=== PATIENT | female | born 1985 | race American Indian/Alaskan Native ===

== ENCOUNTER 2017-03-06 01:38 | Emergency (ER) | payer MEDICAID ==
[2017-03-06 03:36] LABS: Hematocrit 35.3 % (30.3-42.9); Hemoglobin 11.7 gm/dl (10.1-14.3); Mean Corpuscular HGB Conc 33 % (30-34); Mean Corpuscular Hemoglobin 29 pg (28-32); Mean Corpuscular Volume 87 fl (79-97); Platelet Count 248 K/mm3 (140-440); Red Blood Count 4.07 M/mm3 (3.65-5.03); Red Cell Distribution Width 13.8 % (13.2-15.2); White Blood Count 6.7 K/mm3 (4.5-11.0)
[2017-03-06 03:40] LABS: Bilirubin,Urine NEG (Negative); Blood,Urine SM (Negative); Ketones,Urine NEG (Negative); Leukocyte Esterase,Urine NEG (Negative); Mucus,Urine FEW /HPF; Nitrite,Urine NEG (Negative); Protein,Urine <15 mg/dL mg/dL (Negative); Urobilinogen,Urine < 2.0 mg/dL (<2.0)
[2017-03-06 03:40] LABS: Anion Gap 19 mmol/L; BUN/Creatinine Ratio 18.57; Blood Urea Nitrogen 13 mg/dL (7-17); Calcium 9.5 mg/dL (8.4-10.2); Carbon Dioxide 26 mmol/L (22-30); Chloride 100.3 mmol/L (98-107); Glucose 94 mg/dL (65-100); Potassium 4.1 mmol/L (3.6-5.0); Sodium 141 mmol/L (137-145)
--- NOTE | 2017-03-06 08:59 | Ultrasound Report ---
ULTRASOUND OB LESS THAN 14 WEEKS - TRANSABDOMINAL AND TRANSVAGINAL INDICATION: , abdominal pain. Serum beta-hCG 39.05 units. History of ectopic in December on right side and tubes tied in 2009. COMPARISON: 12/14/2016 FINDINGS: Transabdominal and transvaginal pelvic sonography performed in this patient with LMP of 01/21/2017 and estimated menstrual age of 6 weeks and 2 days. A 9.8 x 5.4 x 5.7 cm uterus demonstrates no evidence of an intrauterine gestation at this time. Approximately 2.3 x 1.7 cm fibroid may be present as on endovaginal image 15. Endometrial thickness towards the fundus 1.4 cm, endovaginal image 8. No significant pelvic free fluid. Few small nabothian cysts. Normal imaged urinary bladder. Right ovary is 3 x 2.2 x 2.7 cm with few small physiologic follicles. Left ovary is 3.9 x 2.7 x 3 cm with an eccentric 2.2 cm complex cyst with intrinsic echoes, endovaginal image 27. CONCLUSION: 1. No sonographic evidence of an intrauterine gestation, as described. Small fibroid may be present. 2. Both ovaries visualized with a complex left ovarian cyst. Please also correlate clinically, with serial serum beta-hCG values and/or followup imaging, as warranted. Thank you for the opportunity to participate in this patient's care.
--- NOTE | 2017-03-06 10:38 | Emergency Department Report ---
ED Female HPI - General Chief complaint: Abdominal Pain Stated complaint: LEFT PELVIC PAIN/POSS ECTOPIC PREG Time Seen by Provider: 03/06/17 08:28 Source: patient, RN notes reviewed, old records reviewed Mode of arrival: Ambulatory Limitations: No Limitations - History of Present Illness Initial comments: This is a 31-year-old female. She is previously unknown to me. She is 5, para 3. Last menstrual period is January 21. Patient treated at this hospital December 2016 for right-sided ectopic , her postoperative diagnosis included pelvic adhesions, and she had a right sided salpingectomy, right paravertebral and left paratubal cystectomy, and lysis of pelvic adhesions. Patient was found to have an ectopic which was visible at the proximal portion of the right fallopian tube. The patient presents to the ER with left lower quadrant pain for one week and concern for recurrent ectopic . The pain is achy, and does not radiate anywhere. The pain increases with palpation and range of motion, and it decreases with rest. She is not having vaginal bleeding, she denies dizziness, lightheadedness, chest pain, shortness of breath, irritative or obstructive urinary symptoms. Her symptoms are not worsened today, she reports that she came in today "just to be sure." MD Complaint: pelvic pain -: Gradual Radiation: LLQ Severity: mild Quality: cramping Consistency: intermittent Are you Now?: Yes Associated Symptoms: abdominal pain. denies: vaginal discharge, vaginal bleeding, nausea/vomiting, fever/chills, headaches, loss of appetite, dysuria, hematuria, shortness of breath, syncope, weakness - Related Data Sexually active: Yes Home Medications Medication Instructions Recorded Confirmed Last Taken No Known Home Medications [No 03/06/17 03/06/17 Unknown Reported Home Medications] Allergies Allergy/AdvReac Type Severity Reaction Status Date / Time No Known Allergies Allergy Verified 12/14/16 08:05 ED Review of Systems ROS: Stated complaint: LEFT PELVIC PAIN/POSS ECTOPIC PREG Other details as noted in HPI ED Past Medical Hx - Past Medical History Previous Medical History?: Yes Hx Renal Disease: No Additional medical history: Ectopic December 14, 2016 - Surgical History Past Surgical History?: Yes Additional Surgical History: tubal ligation (2009) - Social History Smoking Status: Never Smoker - Medications Home Medications: Home Medications Medication Instructions Recorded Confirmed Last Taken Type No Known Home Medications [No 03/06/17 03/06/17 Unknown History Reported Home Medications] ED Physical Exam - General Limitations: No Limitations General appearance: alert, in no apparent distress - Head Head exam: Present: atraumatic, normocephalic - Eye Eye exam: Present: normal appearance, EOMI. Absent: nystagmus - ENT ENT exam: Present: normal exam, normal orophraynx, mucous membranes moist, normal external ear exam - Neck Neck exam: Present: normal inspection, full ROM. Absent: tenderness, meningismus - Respiratory Respiratory exam: Present: normal lung sounds bilaterally. Absent: respiratory distress, wheezes, rales, rhonchi, stridor, chest wall tenderness, accessory muscle use, decreased breath sounds, prolonged expiratory - Cardiovascular Cardiovascular Exam: Present: regular rate, normal rhythm, normal heart sounds. Absent: bradycardia, tachycardia, irregular rhythm, systolic murmur, diastolic murmur, rubs, gallop - GI/Abdominal GI/Abdominal exam: Present: soft, tenderness, normal bowel sounds, other (there is minimal left lower quadrant tenderness, there is no rebound, guarding or peritoneal signs.). Absent: distended, guarding, rebound, rigid, pulsatile mass - External exam: Present: other (gynecologic examination is deferred because of concern for a suspected early ectopic ) - Extremities Exam Extremities exam: Present: normal inspection, full ROM, normal capillary refill. Absent: calf tenderness - Back Exam Back exam: Present: normal inspection, full ROM. Absent: tenderness, CVA tenderness (R), CVA tenderness (L), muscle spasm, paraspinal tenderness, vertebral tenderness - Neurological Exam Neurological exam: Present: alert, oriented X3, normal gait, other (Extraocular movements intact. Tongue midline. No facial droop. Facial sensation intact to light touch in the V1, V2, V3 distribution bilaterally. 5 and 5 strength in 4 extremities.. Sensation is intact to light touch in 4 extremities.). Absent : motor sensory deficit - Psychiatric Psychiatric exam: Present: normal affect, normal mood - Skin Skin exam: Present: warm, dry, intact, normal color. Absent: rash ED Course Vital Signs 03/06/17 03/06/17 03/06/17 02:49 08:33 09:02 Temperature 99.0 F Pulse Rate 83 75 Respiratory 18 18 16 Rate Blood Pressure 130/81 Blood Pressure 109/65 [Right] O2 Sat by Pulse 100 100 Oximetry ED Medical Decision Making - Lab Data Result diagrams: 03/06/17 03:07 03/06/17 03:07 Vital Signs 03/06/17 03/06/17 03/06/17 02:49 08:33 09:02 Temperature 99.0 F Pulse Rate 83 75 Respiratory 18 18 16 Rate Blood Pressure 130/81 Blood Pressure 109/65 [Right] O2 Sat by Pulse 100 100 Oximetry Lab Results 03/06/17 03/06/17 03/06/17 Range/Units 03:07 03:07 03:07 WBC 6.7 (4.5-11.0) K/mm3 RBC 4.07 (3.65-5.03) M/mm3 Hgb 11.7 (10.1-14.3) gm/dl Hct 35.3 (30.3-42.9) % MCV 87 (79-97) fl MCH 29 (28-32) pg MCHC 33 (30-34) % RDW 13.8 (13.2-15.2) % Plt Count 248 (140-440) K/mm3 Sodium (137-145) mmol/L Potassium (3.6-5.0) mmol/L Chloride (98-107) mmol/L Carbon Dioxide (22-30) mmol/L Anion Gap mmol/L BUN (7-17) mg/dL Creatinine (0.7-1.2) mg/dL Estimated GFR ml/min BUN/Creatinine Ratio % Glucose (65-100) mg/dL Calcium (8.4-10.2) mg/dL HCG, Qual Positive (Negative) HCG, Quant 39.05 H (0-4) mIU/mL Urine Color (Yellow) Urine Turbidity (Clear) Urine pH (5.0-7.0) Ur Specific [place] (1.003-1.030) Urine Protein (Negative) mg/dL Urine Glucose (UA) (Negative) mg/dL Urine Ketones (Negative) mg/dL Urine Blood (Negative) Urine Nitrite (Negative) Urine Bilirubin (Negative) Urine Urobilinogen (<2.0) mg/dL Ur Leukocyte Esterase (Negative) Urine WBC (Auto) (0.0-6.0) /HPF Urine RBC (Auto) (0.0-6.0) /HPF U Epithel Cells (Auto) (0-13.0) /HPF Urine Mucus /HPF 03/06/17 03/06/17 Range/Units 03:07 03:17 WBC (4.5-11.0) K/mm3 RBC (3.65-5.03) M/mm3 Hgb (10.1-14.3) gm/dl Hct (30.3-42.9) % MCV (79-97) fl MCH (28-32) pg MCHC (30-34) % RDW (13.2-15.2) % Plt Count (140-440) K/mm3 Sodium 141 (137-145) mmol/L Potassium 4.1 (3.6-5.0) mmol/L Chloride 100.3 (98-107) mmol/L Carbon Dioxide 26 (22-30) mmol/L Anion Gap 19 mmol/L BUN 13 (7-17) mg/dL Creatinine 0.7 (0.7-1.2) mg/dL Estimated GFR > 60 ml/min BUN/Creatinine Ratio 18.57 % Glucose 94 (65-100) mg/dL Calcium 9.5 (8.4-10.2) mg/dL HCG, Qual (Negative) HCG, Quant (0-4) mIU/mL Urine Color Yellow (Yellow) Urine Turbidity Clear (Clear) Urine pH 5.0 (5.0-7.0) Ur Specific [place] 1.023 (1.003-1.030) Urine Protein <15 mg/dl (Negative) mg/dL Urine Glucose (UA) Neg (Negative) mg/dL Urine Ketones Neg (Negative) mg/dL Urine Blood Sm (Negative) Urine Nitrite Neg (Negative) Urine Bilirubin Neg (Negative) Urine Urobilinogen < 2.0 (<2.0) mg/dL Ur Leukocyte Esterase Neg (Negative) Urine WBC (Auto) 1.0 (0.0-6.0) /HPF Urine RBC (Auto) 1.0 (0.0-6.0) /HPF U Epithel Cells (Auto) 2.0 (0-13.0) /HPF Urine Mucus Few /HPF - Radiology Data Radiology results: report reviewed, image reviewed Transvaginal ultrasound demonstrates no evidence of intrauterine gestational . Small fibroids may be present. Both ovaries are visualized with a complex left-sided ovarian cyst. The left ovary is 3.9 x 2.7 x 3 cm, with an eccentric 2.2 complex cyst with intrinsic echoes. - Medical Decision Making Differential diagnosis: Ectopic , ovarian cyst, early intrauterine Assessment and plan: 31-year-old female with 1 week of left lower quadrant pain , quantitative hCG of 39, nonspecific findings noted on pelvic ultrasound. Findings concerning for possible early ectopic . The patient is afebrile with reassuring vital signs and she is not peritoneal. Her hemoglobin and hematocrit are stable at this time. Case is discussed with the telex operator on-call, Dr. Lizzie Thacker. She recommends to have the patient follow up in 2 days for repeat quantitative hCG and repeat pelvic ultrasound. The patient is reliable, and understands when to return to the ER if her symptoms change or worsen. She will be discharged at this time with instructions for pelvic rest, and instructed to follow-up in 2 days. Critical care attestation.: If time is entered above; I have spent that time in minutes in the direct care of this critically ill patient, excluding procedure time. ED Disposition Clinical Impression: Disposition: DC-01 TO HOME OR SELFCARE Is pt being admited?: No Does the pt Need Aspirin: No Condition: Stable Instructions: Ectopic (ED) Additional Instructions: Rest and avoid heavy lifting. Avoid strenuous physical activity. Do not engage in sexual activity. Return in 2 days for a repeat ultrasound and quantitative hCG. Follow up with any of the listed gynecology specialist within the next week. Return to the ER right away with sudden pain, worsened pain, dizziness, lightheadedness, loss of consciousness, confusion, bleeding. It is very important to follow-up in 2 days for repeat blood tests and ultrasound. Not following up as recommended may result in an undiagnosed ectopic , which can cause , disability, paralysis, loss of quality of life. Referrals: PRIMARY CARE, [Primary Care Provider] - 3-5 Days [facility] [Provider Group] - 3-5 Days [facility] [Provider Group] - 3-5 Days [facility] [Provider Group] - 3-5 Days
[2017-03-06 11:11] VITALS: BP 126/85
[2017-03-06 11:45] LABS: Alanine Aminotransferase 21 units/L (7-56); Albumin 4.3 g/dL (3.9-5); Albumin/Globulin Ratio 1.2 %; Alkaline Phosphatase 68 units/L (35-129)
[2017-03-06 12:04] LABS: Bilirubin,Direct < 0.2 mg/dL (0-0.2); Bilirubin,Indirect 0.2 mg/dL
== END 2017-03-06 11:12 | disposition home or self-care (01) ==
LOC: ED 01:38
DX: O26.891 Other specified pregnancy related conditions, first trimester (principal); R10.32 Left lower quadrant pain; Z3A.01 Less than 8 weeks gestation of pregnancy
CPT/HCPCS: 36415; 76801; 76817; 80048; 80074; 81001; 84702; 84703; 85027

== ENCOUNTER 2017-03-08 06:48 | Emergency (ER) | payer MEDICAID ==
--- NOTE | 2017-03-08 09:39 | Ultrasound Report ---
ULTRASOUND OB LESS THAN 14 WEEKS FETUS ULTRASOUND OB TRANSVAGINAL History: Lower pelvic pain, reevaluate for ectopic Technique: Transabdominal and transvaginal ultrasound imaging. Findings: Compared to 03/06/17. The uterus measures 12 x 6 x 6 cm. The endometrial stripe measures 8 mm. 2 cm fibroid in the left lower lateral wall is noted. The right ovary remains unremarkable measuring 3.5 x 2.1 x 2.9 cm. The left ovary measures 4.5 x 2.2 x 4.5 cm. A 2.2 cm complex cyst in the left ovary is unchanged. No heart tones or ring of fire is demonstrated. No pelvic fluid collection. Impression: No intrauterine is demonstrated. The endometrial stripe measures 8 mm. No change in the complex left ovarian cyst. There is no obvious ectopic . Please correlate with the patient and quantitative beta hCG levels.
--- NOTE | 2017-03-08 10:26 | Emergency Department Report ---
ED Female HPI - General Chief complaint: Abdominal Pain Stated complaint: ABD PAIN/POSS ECTOPIC PREG Time Seen by Provider: 03/08/17 10:07 Source: patient Mode of arrival: Ambulatory Limitations: No Limitations - History of Present Illness Initial comments: Patient is 31-year-old female here on Monday with ultrasound that showed questionable ectopic . Returns because of recurrent pain. He is here to have a repeat ultrasound and blood work. She had a ectopic approximately 2 months ago that was removed via surgery on the right side. Today she complains of some mild pain on the left side. Otherwise she has no other complaints. She has no vaginal bleeding. -: Gradual Location: LLQ Radiation: non-radiating Severity: mild, moderate Quality: cramping Consistency: intermittent Improves with: none Worsens with: none Are you Now?: Yes Associated Symptoms: abdominal pain. denies: vaginal discharge, vaginal bleeding, nausea/vomiting, fever/chills - Related Data Sexually active: Yes Previous Rx's Medication Instructions Recorded Last Taken Type Ondansetron [Zofran Odt] 4 mg PO Q8HR PRN #10 tab.rapdis 03/08/17 Unknown Rx Allergies Allergy/AdvReac Type Severity Reaction Status Date / Time No Known Allergies Allergy Verified 12/14/16 08:05 ED Review of Systems ROS: Stated complaint: ABD PAIN/POSS ECTOPIC PREG Other details as noted in HPI Comment: All other systems reviewed and negative Constitutional: denies: chills, fever, malaise, weakness Eyes: denies: eye pain, eye discharge, vision change ENT: denies: congestion Respiratory: denies: cough, shortness of breath, wheezing Cardiovascular: denies: chest pain, palpitations Endocrine: no symptoms reported Gastrointestinal: abdominal pain. denies: nausea, diarrhea, constipation Genitourinary: denies: urgency, dysuria, discharge Musculoskeletal: denies: back pain, joint swelling, arthralgia Skin: denies: rash, lesions Psychiatric: denies: anxiety, depression Hematological/Lymphatic: denies: easy bleeding, easy bruising ED Past Medical Hx - Past Medical History Hx Renal Disease: No Additional medical history: Ectopic December 14, 2016 - Surgical History Past Surgical History?: Yes Additional Surgical History: tubal ligation (2009) - Social History Smoking Status: Never Smoker Substance Use Type: None - Medications Home Medications: Home Medications Medication Instructions Recorded Confirmed Last Taken Type Ondansetron [Zofran Odt] 4 mg PO Q8HR PRN #10 tab.rapdis 03/08/17 Unknown Rx ED Physical Exam - General Limitations: No Limitations General appearance: alert, in no apparent distress - Head Head exam: Present: atraumatic, normocephalic - Eye Eye exam: Present: normal appearance - ENT ENT exam: Present: normal orophraynx, mucous membranes moist - Neck Neck exam: Present: normal inspection - Respiratory Respiratory exam: Present: normal lung sounds bilaterally. Absent: respiratory distress, wheezes - Cardiovascular Cardiovascular Exam: Present: regular rate, normal rhythm. Absent: systolic murmur, diastolic murmur, rubs, gallop - GI/Abdominal GI/Abdominal exam: Present: soft, normal bowel sounds. Absent: distended, tenderness, guarding, rebound - Extremities Exam Extremities exam: Present: normal inspection - Back Exam Back exam: Present: normal inspection - Neurological Exam Neurological exam: Present: alert, oriented X3 - Psychiatric Psychiatric exam: Present: normal affect, normal mood - Skin Skin exam: Present: warm, dry, intact, normal color. Absent: rash ED Course Vital Signs 03/08/17 03/08/17 03/08/17 07:38 08:24 11:28 Temperature 98.4 F 98.0 F 98.2 F Pulse Rate 97 H 84 77 Respiratory 18 16 16 Rate Blood Pressure 124/76 Blood Pressure 113/72 116/69 [Left] O2 Sat by Pulse 99 100 99 Oximetry ED Medical Decision Making - Lab Data Laboratory Results - last 24 hr 03/08/17 07:52 HCG, Quant 34.40 H - Medical Decision Making 31-year-old female here with question of ectopic . Repeat ultrasound and beta hCG ordered. Awaiting results. She has a complex left ovarian mass which is essentially unchanged since prior ultrasound. Her beta hCG is 34 which is down from 39. Plan to discuss case with OB. At this point she likely needs methotrexate. 11 AM discussed findings of ultrasound and beta hCG the patient. Plan discuss with her OB Dr. Roberto. She is hemodynamically stable and there is no need for emergent surgery. However seem likely need some sort of medical therapy, likely methotrexate. 11:40 AM discussed case with Dr. Roberto and he agrees with methotrexate. Plan is to order in the emergency department administered here in the ER and likely discharge. Recent review of LFTs from 48 hours ago showed normal renal and liver function. Critical care attestation.: If time is entered above; I have spent that time in minutes in the direct care of this critically ill patient, excluding procedure time. ED Disposition Clinical Impression: Ectopic Disposition: DC-01 TO HOME OR SELFCARE Is pt being admited?: No Condition: Stable Instructions: Ectopic (ED), Abdominal Pain (ED) Additional Instructions: Please follow up with Dr. Roberto in 48 hours for repeat blood work Prescriptions: Ondansetron [Zofran Odt] 4 mg PO Q8HR PRN #10 tab.rapdis PRN Reason: Nausea And Vomiting Referrals: PRIMARY CARE, [Primary Care Provider] - 3-5 Days IMTIAZ ROBERTO MD [Staff Physician] - 3-5 Days Time of Disposition: 13:36
[2017-03-08] MEDS ORDERED: METHOTREXATE IM ONE (12:36)
[2017-03-08 13:59] VITALS: BP 105/60
== END 2017-03-08 13:59 | disposition home or self-care (01) ==
LOC: ED 06:48
DX: O00.90 Unspecified ectopic pregnancy without intrauterine pregnancy (principal); Z3A.00 Weeks of gestation of pregnancy not specified
CPT/HCPCS: 36415; 76801; 76817; 84702; 96372; 99283; J9260

== ENCOUNTER 2018-09-15 13:25 | Emergency (ER) | payer MEDICAID, OTHER ==
[2018-09-15] MEDS ORDERED: NORCO 5/325 PO ONE (14:04)
[2018-09-15] MEDS ORDERED: TORADOL IM ONE (14:04)
[2018-09-15 14:58] LABS: Basophils % (Auto) 0.6 % (0.0-1.8); Eosinophils # (Auto) 0.1 K/mm3 (0.0-0.4); Eosinophils % (Auto) 1.1 % (0.0-4.3); Hematocrit 38.3 % (30.3-42.9); Hemoglobin 12.7 gm/dl (10.1-14.3); Lymphocytes # (Auto) 1.8 K/mm3 (1.2-5.4); Lymphocytes % (Auto) 26.6 % (13.4-35.0); Mean Corpuscular HGB Conc 33 % (30-34); Mean Corpuscular Volume 87 fl (79-97); Monocytes # (Auto) 0.5 K/mm3 (0.0-0.8); Monocytes % (Auto) 7.5 % (0.0-7.3); Platelet Count 289 K/mm3 (140-440); Red Blood Count 4.38 M/mm3 (3.65-5.03)
--- NOTE | 2018-09-15 15:05 | Emergency Department Report ---
ED Chest Pain HPI - General Chief Complaint: Back Pain/Injury Stated Complaint: SHARP PAIN RIB/CHEST Time Seen by Provider: 09/15/18 14:01 Source: patient, EMS Mode of arrival: Ambulatory Limitations: No Limitations - History of Present Illness Initial Comments: 33-year-old female with a past medical history of tubal ligation presents to the Hospital complaining of anterior posterior thoracic chest pain that started 30 minutes prior to arrival. Pain is along bilateral inferior anterior ribs in right sided posterior thorax. Pain is constant, sharp in nature, rated 8/10 in intensity. Worsen movement and palpation. Mild diaphoresis reported. Patient did have a runny nose the last several days but denies cough, fever, calf tenderness, leg edema, PE/DVT history, trauma, or recent travel Severity scale (0 -10): 8 - Related Data Previous Rx's Medication Instructions Recorded Last Taken Type Ondansetron [Zofran Odt] 4 mg PO Q8HR PRN #10 tab.rapdis 03/08/17 Unknown Rx Phenazopyridine [Pyridium] 200 mg PO TID #6 tab 07/24/18 Unknown Rx Sulfamethoxazole/Trimethoprim 1 each PO BID #6 tablet 07/24/18 Unknown Rx [Bactrim DS TAB] Ibuprofen [Motrin] 800 mg PO Q8HR PRN #30 tablet 09/15/18 Unknown Rx traMADol [Ultram 50 MG tab] 50 mg PO Q6HR PRN #20 tablet 09/15/18 Unknown Rx Allergies Allergy/AdvReac Type Severity Reaction Status Date / Time No Known Allergies Allergy Verified 09/15/18 13:33 Heart Score - HEART Score History: Slightly suspicious EKG: Normal Age: < 45 Risk factors: No known risk factors Troponin: < normal limit HEART Score: 0 ED Review of Systems ROS: Stated complaint: SHARP PAIN RIB/CHEST Other details as noted in HPI Comment: All other systems reviewed and negative ED Past Medical Hx - Past Medical History Previous Medical History?: No Hx Renal Disease: No Additional medical history: Ectopic x 2 (December & February 2017) - Surgical History Additional Surgical History: tubal ligation (2009), ectopic - Social History Smoking Status: Never Smoker Substance Use Type: None - Medications Home Medications: Home Medications Medication Instructions Recorded Confirmed Last Taken Type Ondansetron [Zofran Odt] 4 mg PO Q8HR PRN #10 tab.rapdis 03/08/17 Unknown Rx Phenazopyridine [Pyridium] 200 mg PO TID #6 tab 07/24/18 Unknown Rx Sulfamethoxazole/Trimethoprim 1 each PO BID #6 tablet 07/24/18 Unknown Rx [Bactrim DS TAB] Ibuprofen [Motrin] 800 mg PO Q8HR PRN #30 tablet 09/15/18 Unknown Rx traMADol [Ultram 50 MG tab] 50 mg PO Q6HR PRN #20 tablet 09/15/18 Unknown Rx ED Physical Exam - General Limitations: No Limitations - Other Other exam information: General: No limitations, patient is alert in no acute distress Head exam: Atraumatic, normocephalic Eyes exam: Normal appearance, pupils equal reactive to light, extraocular move ments intact ENT: Moist mucous membrane, normal oropharynx Neck exam: Normal inspection, full range of motion, no meningismus nontender Respiratory exam: Clear to auscultation bilateral, no wheezes, rales, crackles Cardiovascular: Normal rate and rhythm, bilateral lower anterior ribs tender to palpation and posterior right thoracic tenderness on palpation. Abdomen: Soft, nondistended, and nontender, with normal bowel sounds, no rebound, or guarding Extremity: Full range of motion normal inspection no deformity, no calf tenderness or edema Back: Normal Inspection, full range of motion, no tenderness Neurologic: Alert, oriented x3, cranial nerves intact, no motor or sensory deficit Psychiatric: normal affect, normal mood Skin: Warm, dry, intact ED Course Vital Signs 09/15/18 09/15/18 13:33 14:37 Temperature 98.6 F Pulse Rate 106 H Respiratory 20 18 Rate Blood Pressure 109/66 O2 Sat by Pulse 98 Oximetry VIRGIL score - Virgil Score Age > 65: (0) No 3 or more CAD Risk Factors: (0) No 2 or more Angina events in past 24 hrs: (0) No Known CAD with more than 50% Stenosis: (0) No Elevated Cardiac Markers: (0) No ST Deviation Greater than 0.5mm: (0) No ED Medical Decision Making - Lab Data Result diagrams: 09/15/18 14:48 09/15/18 14:48 Lab Results 09/15/18 09/15/18 09/15/18 Range/Units 14:48 14:48 14:48 WBC 6.6 (4.5-11.0) K/mm3 RBC 4.38 (3.65-5.03) M/mm3 Hgb 12.7 (10.1-14.3) gm/dl Hct 38.3 (30.3-42.9) % MCV 87 (79-97) fl MCH 29 (28-32) pg MCHC 33 (30-34) % RDW 14.0 (13.2-15.2) % Plt Count 289 (140-440) K/mm3 Lymph % (Auto) 26.6 (13.4-35.0) % Gladwin % (Auto) 7.5 H (0.0-7.3) % Eos % (Auto) 1.1 (0.0-4.3) % Baso % (Auto) 0.6 (0.0-1.8) % Lymph # 1.8 (1.2-5.4) K/mm3 Gladwin # 0.5 (0.0-0.8) K/mm3 Eos # 0.1 (0.0-0.4) K/mm3 Baso # 0.0 (0.0-0.1) K/mm3 Seg Neutrophils % 64.2 (40.0-70.0) % Seg Neutrophils # 4.2 (1.8-7.7) K/mm3 D-Dimer 181.61 (0-234) ng/mlDDU Sodium 138 (137-145) mmol/L Potassium 3.7 (3.6-5.0) mmol/L Chloride 98.9 (98-107) mmol/L Carbon Dioxide 29 (22-30) mmol/L Anion Gap 14 mmol/L BUN 15 (7-17) mg/dL Creatinine 1.0 (0.7-1.2) mg/dL Estimated GFR > 60 ml/min BUN/Creatinine Ratio 15 % Glucose 89 (65-100) mg/dL Calcium 9.6 (8.4-10.2) mg/dL Troponin T < 0.010 (0.00-0.029) ng/mL HCG, Qual (Negative) 09/15/18 Range/Units 14:48 WBC (4.5-11.0) K/mm3 RBC (3.65-5.03) M/mm3 Hgb (10.1-14.3) gm/dl Hct (30.3-42.9) % MCV (79-97) fl MCH (28-32) pg MCHC (30-34) % RDW (13.2-15.2) % Plt Count (140-440) K/mm3 Lymph % (Auto) (13.4-35.0) % Gladwin % (Auto) (0.0-7.3) % Eos % (Auto) (0.0-4.3) % Baso % (Auto) (0.0-1.8) % Lymph # (1.2-5.4) K/mm3 Gladwin # (0.0-0.8) K/mm3 Eos # (0.0-0.4) K/mm3 Baso # (0.0-0.1) K/mm3 Seg Neutrophils % (40.0-70.0) % Seg Neutrophils # (1.8-7.7) K/mm3 D-Dimer (0-234) ng/mlDDU Sodium (137-145) mmol/L Potassium (3.6-5.0) mmol/L Chloride (98-107) mmol/L Carbon Dioxide (22-30) mmol/L Anion Gap mmol/L BUN (7-17) mg/dL Creatinine (0.7-1.2) mg/dL Estimated GFR ml/min BUN/Creatinine Ratio % Glucose (65-100) mg/dL Calcium (8.4-10.2) mg/dL Troponin T (0.00-0.029) ng/mL HCG, Qual Negative (Negative) - EKG Data -: EKG Interpreted by Ut EKG shows normal: sinus rhythm, axis (qrs 57), QRS complexes (qrsd 94), ST-T waves (no STEMI) Rate: normal (57) - EKG Data When compared to previous EKG there are: previous EKG unavailable - Radiology Data Radiology results: report reviewed FINAL REPORT EXAM: XR CHEST ROUTINE 2V HISTORY: cp COMPARISON: None. TECHNIQUE: Frontal and lateral views of the chest. FINDINGS: The cardiomediastinal silhouette is normal in appearance. The lungs are clear without focal consolidation. There is no pleural effusion or pneumothorax. There is no acute soft tissue or osseous abnormality. IMPRESSION: No acute cardiopulmonary disease. - Medical Decision Making Chest pain is atypical and reproducible. X-ray, labs, EKG unremarkable. D- dimer less than 250 with low pretest probability. pain improved with meds given in ed - Differential Diagnosis costochondritis, pneumothorax, PE, pneumonia, MSK pain Critical Care Time: No Critical care attestation.: If time is entered above; I have spent that time in minutes in the direct care of this critically ill patient, excluding procedure time. ED Disposition Clinical Impression: Chest pain Disposition: TO HOME OR SELFCARE Is pt being admited?: No Does the pt Need Aspirin: No Condition: Stable Instructions: Chest Pain (ED) Additional Instructions: Take the medication as prescribed. Follow up with your doctor or the doctor /clinic provided.. Return if symptoms worsen as indicated by your discharge instructions Prescriptions: Ibuprofen [Motrin] 800 mg PO Q8HR PRN #30 tablet PRN Reason: Pain, Moderate (4-6) traMADol [Ultram 50 MG tab] 50 mg PO Q6HR PRN #20 tablet PRN Reason: Pain Referrals: PETROS WARD MD [Primary Care Provider] - 3-5 Days [facility] [Provider Group] - 3-5 Days Time of Disposition: 17:17
[2018-09-15 15:37] LABS: BUN/Creatinine Ratio 15; Blood Urea Nitrogen 15 mg/dL (7-17); Calcium 9.6 mg/dL (8.4-10.2); Hemolysis Index 1
--- NOTE | 2018-09-15 17:06 | XRay Report ---
FINAL REPORT EXAM: XR CHEST ROUTINE 2V HISTORY: cp COMPARISON: None. TECHNIQUE: Frontal and lateral views of the chest. FINDINGS: The cardiomediastinal silhouette is normal in appearance. The lungs are clear without focal consolidation. There is no pleural effusion or pneumothorax. There is no acute soft tissue or osseous abnormality. IMPRESSION: No acute cardiopulmonary disease.
[2018-09-16 14:08] VITALS: BP 111/74
== END 2018-09-15 17:31 | disposition home or self-care (01) ==
LOC: ED 13:25
DX: R07.89 Other chest pain (principal); R61 Generalized hyperhidrosis; J34.89 Other specified disorders of nose and nasal sinuses
CPT/HCPCS: 36415; 71046; 80048; 84484; 84703; 85025; 85379; 93005; 93010; 96372; 99284; J1885

== ENCOUNTER 2019-08-28 12:34 | Emergency (ER) | payer SELFPAY ==
[2019-08-28 13:41] VITALS: BP 126/73
--- NOTE | 2019-08-28 14:40 | Emergency Department Report ---
ED ENT HPI - General Chief complaint: Sore Throat Stated complaint: SORE THROAT/WEAKNESS/BODY ACHE Time Seen by Provider: 08/28/19 14:37 Source: patient Mode of arrival: Ambulatory Limitations: No Limitations - History of Present Illness Initial comments: This is a 34-year-old female nontoxic well in appearance with no signs of distress presents to the ED with complaint of sore throat. Patient denies any drooling or hoarseness. Patient denies any other symptoms. Denies any fever, chills, headache, nausea, vomiting, chest pain or SOB. Denies any other complaints. MD complaint: sore throat -: days(s) Location: throat Severity: mild Severity scale (0 -10): 8 Quality: aching Consistency: constant Improves with: none Worsens with: swallowing Associated Symptoms: pain with swallowing, sore throat. denies: fever, cough, gum swelling, toothache, tinnitus, hearing loss, discharge from ear, rhinorrhea - Related Data Previous Rx's Medication Instructions Recorded Last Taken Type Ondansetron [Zofran Odt] 4 mg PO Q8HR PRN #10 tab.rapdis 03/08/17 Unknown Rx Phenazopyridine [Pyridium] 200 mg PO TID #6 tab 07/24/18 Unknown Rx Sulfamethoxazole/Trimethoprim 1 each PO BID #6 tablet 07/24/18 Unknown Rx [Bactrim DS TAB] Ibuprofen [Motrin] 800 mg PO Q8HR PRN #30 tablet 09/15/18 Unknown Rx traMADoL [Ultram 50 MG tab] 50 mg PO Q6HR PRN #20 tablet 09/15/18 Unknown Rx Amoxicillin [Amoxicillin TAB] 875 mg PO BID #20 tablet 08/28/19 Unknown Rx Ibuprofen [Motrin] 600 mg PO Q8H PRN #20 tablet 08/28/19 Unknown Rx Allergies Allergy/AdvReac Type Severity Reaction Status Date / Time No Known Allergies Allergy Verified 09/15/18 13:33 ED Dental HPI - General Chief complaint: Sore Throat Stated complaint: SORE THROAT/WEAKNESS/BODY ACHE Time Seen by Provider: 08/28/19 14:37 Source: patient Mode of arrival: Ambulatory Limitations: No Limitations - Related Data Previous Rx's Medication Instructions Recorded Last Taken Type Ondansetron [Zofran Odt] 4 mg PO Q8HR PRN #10 tab.rapdis 03/08/17 Unknown Rx Phenazopyridine [Pyridium] 200 mg PO TID #6 tab 07/24/18 Unknown Rx Sulfamethoxazole/Trimethoprim 1 each PO BID #6 tablet 07/24/18 Unknown Rx [Bactrim DS TAB] Ibuprofen [Motrin] 800 mg PO Q8HR PRN #30 tablet 09/15/18 Unknown Rx traMADoL [Ultram 50 MG tab] 50 mg PO Q6HR PRN #20 tablet 09/15/18 Unknown Rx Amoxicillin [Amoxicillin TAB] 875 mg PO BID #20 tablet 08/28/19 Unknown Rx Ibuprofen [Motrin] 600 mg PO Q8H PRN #20 tablet 08/28/19 Unknown Rx Allergies Allergy/AdvReac Type Severity Reaction Status Date / Time No Known Allergies Allergy Verified 09/15/18 13:33 ED Review of Systems ROS: Stated complaint: SORE THROAT/WEAKNESS/BODY ACHE Other details as noted in HPI Constitutional: denies: chills, fever Eyes: denies: eye pain, eye discharge, vision change ENT: throat pain. denies: ear pain Respiratory: denies: cough, shortness of breath, wheezing Cardiovascular: denies: chest pain, palpitations Endocrine: no symptoms reported Gastrointestinal: denies: abdominal pain, nausea, diarrhea Genitourinary: denies: urgency, dysuria, discharge Musculoskeletal: denies: back pain, joint swelling, arthralgia Skin: denies: rash, lesions Neurological: denies: headache, weakness, paresthesias Psychiatric: denies: anxiety, depression Hematological/Lymphatic: denies: easy bleeding, easy bruising ED Past Medical Hx - Past Medical History Previous Medical History?: Yes Hx Renal Disease: No Additional medical history: Ectopic x 2 (December & February 2017) - Surgical History Past Surgical History?: Yes Additional Surgical History: tubal ligation (2009) - Social History Smoking Status: Never Smoker Substance Use Type: None - Medications Home Medications: Home Medications Medication Instructions Recorded Confirmed Last Taken Type Ondansetron [Zofran Odt] 4 mg PO Q8HR PRN #10 tab.rapdis 03/08/17 Unknown Rx Phenazopyridine [Pyridium] 200 mg PO TID #6 tab 07/24/18 Unknown Rx Sulfamethoxazole/Trimethoprim 1 each PO BID #6 tablet 07/24/18 Unknown Rx [Bactrim DS TAB] Ibuprofen [Motrin] 800 mg PO Q8HR PRN #30 tablet 09/15/18 Unknown Rx traMADoL [Ultram 50 MG tab] 50 mg PO Q6HR PRN #20 tablet 09/15/18 Unknown Rx Amoxicillin [Amoxicillin TAB] 875 mg PO BID #20 tablet 08/28/19 Unknown Rx Ibuprofen [Motrin] 600 mg PO Q8H PRN #20 tablet 08/28/19 Unknown Rx ED Physical Exam - General Limitations: No Limitations General appearance: alert, in no apparent distress - Head Head exam: Present: atraumatic, normocephalic - Expanded ENT Exam Expanded Ear exam: Present: normal external inspection Mouth exam: Present: normal external inspection. Absent: drooling, trismus, muffled voice Teeth exam: Present: normal inspection Throat exam: Positive: tonsillar erythema, other (uvula midline). Negative: tonsillomegaly, tonsillar exudate, R peritonsillar mass, L peritonsillar mass - Neck Neck exam: Present: normal inspection, full ROM. Absent: tenderness, meningismus, lymphadenopathy - Respiratory Respiratory exam: Present: normal lung sounds bilaterally. Absent: respiratory distress, wheezes, rales, rhonchi, stridor, chest wall tenderness, accessory muscle use, decreased breath sounds, prolonged expiratory - Cardiovascular Cardiovascular Exam: Present: regular rate, normal rhythm, normal heart sounds. Absent: systolic murmur, diastolic murmur, rubs, gallop - Extremities Exam Extremities exam: Present: full ROM - Back Exam Back exam: Present: full ROM - Neurological Exam Neurological exam: Present: alert, oriented X3, normal gait - Psychiatric Psychiatric exam: Present: normal affect, normal mood - Skin Skin exam: Present: warm, dry, intact, normal color. Absent: rash ED Course Vital Signs 08/28/19 13:36 Temperature 98.5 F Pulse Rate 99 H Respiratory 16 Rate Blood Pressure 126/73 O2 Sat by Pulse 100 Oximetry - Reevaluation(s) Reevaluation #2: 08/28/19 14:38 Patient is speaking in full sentences with no signs of distress noted. ED Medical Decision Making - Medical Decision Making Patient was instructed to Follow-up with a primary care doctor in 3-5 days or if symptoms worsen and continue return to emergency room as soon as possible. At time of discharge, the patient does not seem toxic or ill in appearance. No acute signs of distress noted. Patient agrees to discharge treatment plan of care. No further questions noted by the patient. Critical care attestation.: If time is entered above; I have spent that time in minutes in the direct care of this critically ill patient, excluding procedure time. ED Disposition Clinical Impression: Pharyngitis Qualifiers: Pharyngitis/tonsillitis etiology: unspecified etiology Qualified Code(s): J02.9 - Acute pharyngitis, unspecified Disposition: TO HOME OR SELFCARE Is pt being admited?: No Does the pt Need Aspirin: No Condition: Stable Instructions: Pharyngitis (ED) Additional Instructions: Follow-up with a primary care doctor in 3-5 days or if symptoms worsen and continue return to emergency room as soon as possible. Prescriptions: Amoxicillin [Amoxicillin TAB] 875 mg PO BID #20 tablet Ibuprofen [Motrin] 600 mg PO Q8H PRN #20 tablet PRN Reason: Pain Referrals: PRIMARY MD WILFRIDO [Referring] - 3-5 Days JEVON RIZO MD [Staff Physician] - 3-5 Days [facility] [Outside] - 3-5 Days Forms: Work/School Release Form(ED)
== END 2019-08-28 15:10 | disposition home or self-care (01) ==
LOC: ED 12:34
DX: J02.9 Acute pharyngitis, unspecified (principal)
CPT/HCPCS: 99281

== ENCOUNTER 2021-02-19 16:10 | Emergency (ER) | payer SELFPAY ==
[2021-02-19 16:30] VITALS: BP 112/55
--- NOTE | 2021-02-19 18:22 | Emergency Department Report ---
ED Back Pain/Injury HPI - General Chief Complaint: Pain General Stated Complaint: BACK PAIN RT KNEE PAIN Time Seen by Provider: 02/19/21 18:07 Source: patient Limitations: No Limitations - History of Present Illness Initial Comments: 35-year-old -[place] female presents to the emergency room for back pain since last . Patient also reports right knee pain for about a week. 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 Patient denies any injury. Patient reports that she went and had a deep tissue massage and now pain is increased. Patient states she did take some ibuprofen PM which helped her sleep. Patient denies any past medical history currently takes no medications on a daily basis and has no known drug allergies. MD Complaint: back pain Onset/Timin -: week(s) Similar Symptoms Previously: No Place: work Radiation: buttocks, right leg Severity scale (0 -10): 8 Quality: burning, sharp, stabbing Consistency: constant Improves With: none Worsens With: movement, sitting upright Context: bending, other (Standing for long period of time) Associated Symptoms: denies other symptoms. denies: weakness, difficulty walking, difficulty urinating, nausea/vomiting - Related Data Previous Rx's Medication Instructions Recorded Last Taken Type Ondansetron [Zofran Odt] 4 mg PO Q8HR PRN #10 tab.rapdis 03/08/17 Unknown Rx Phenazopyridine [Pyridium] 200 mg PO TID #6 tab 07/24/18 Unknown Rx Sulfamethoxazole/Trimethoprim 1 each PO BID #6 tablet 07/24/18 Unknown Rx [Bactrim DS TAB] Ibuprofen [Motrin] 800 mg PO Q8HR PRN #30 tablet 09/15/18 Unknown Rx traMADoL [Ultram 50 MG tab] 50 mg PO Q6HR PRN #20 tablet 09/15/18 Unknown Rx Amoxicillin [Amoxicillin TAB] 875 mg PO BID #20 tablet 08/28/19 Unknown Rx Ibuprofen [Motrin] 600 mg PO Q8H PRN #20 tablet 08/28/19 Unknown Rx Ibuprofen [Motrin 800 MG tab] 800 mg PO Q8HR PRN #30 tablet 02/19/21 Unknown Rx methOCARBAMOL [Robaxin TAB] 500 mg PO Q6H PRN #20 tablet 02/19/21 Unknown Rx Allergies Allergy/AdvReac Type Severity Reaction Status Date / Time No Known Allergies Allergy Verified 08/28/19 14:38 ED Review of Systems ROS: Stated complaint: BACK PAIN RT KNEE PAIN Other details as noted in HPI ED Past Medical Hx - Past Medical History Hx Renal Disease: No Additional medical history: Ectopic x 2 (December & February 2017) - Surgical History Additional Surgical History: tubal ligation (2009) - Social History Smoking Status: Never Smoker Substance Use Type: None - Medications Home Medications: Home Medications Medication Instructions Recorded Confirmed Last Taken Type Ondansetron [Zofran Odt] 4 mg PO Q8HR PRN #10 tab.rapdis 03/08/17 Unknown Rx Phenazopyridine [Pyridium] 200 mg PO TID #6 tab 07/24/18 Unknown Rx Sulfamethoxazole/Trimethoprim 1 each PO BID #6 tablet 07/24/18 Unknown Rx [Bactrim DS TAB] Ibuprofen [Motrin] 800 mg PO Q8HR PRN #30 tablet 09/15/18 Unknown Rx traMADoL [Ultram 50 MG tab] 50 mg PO Q6HR PRN #20 tablet 09/15/18 Unknown Rx Amoxicillin [Amoxicillin TAB] 875 mg PO BID #20 tablet 08/28/19 Unknown Rx Ibuprofen [Motrin] 600 mg PO Q8H PRN #20 tablet 08/28/19 Unknown Rx Ibuprofen [Motrin 800 MG tab] 800 mg PO Q8HR PRN #30 tablet 02/19/21 Unknown Rx methOCARBAMOL [Robaxin TAB] 500 mg PO Q6H PRN #20 tablet 02/19/21 Unknown Rx ED Physical Exam - General Limitations: No Limitations General appearance: alert, in no apparent distress - Head Head exam: Present: atraumatic, normocephalic - Eye Eye exam: Present: normal appearance - ENT ENT exam: Present: mucous membranes moist - Neck Neck exam: Present: normal inspection, full ROM - Respiratory Respiratory exam: Present: normal lung sounds bilaterally. Absent: accessory muscle use - Cardiovascular Cardiovascular Exam: Present: regular rate, normal rhythm. Absent: systolic murmur, diastolic murmur, rubs, gallop - GI/Abdominal GI/Abdominal exam: Present: soft. Absent: distended - Extremities Exam Extremities exam: Present: normal inspection - Back Exam Back exam: Present: full ROM, tenderness - Expanded Back Exam Expanded Back exam: Sciatic Notch Tenderness: Right, Positive Straight Leg Raise: Right - Neurological Exam Neurological exam: Present: alert, oriented X3, normal gait - Psychiatric Psychiatric exam: Present: normal affect, normal mood - Skin Skin exam: Present: warm, dry, intact, normal color. Absent: rash ED Course Vital Signs 02/19/21 02/19/21 16:29 16:30 Temperature 99.1 F Pulse Rate 91 H Respiratory 20 Rate Blood Pressure 112/55 O2 Sat by Pulse 100 Oximetry ED Medical Decision Making - Medical Decision Making 35-year-old -[place] female presents to the emergency room for back pain since last . Patient also reports right knee pain for about a week. 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 Patient denies any injury. Patient reports that she went and had a deep tissue massage and now pain is increased. Patient states she did take some ibuprofen PM which helped her sleep. Patient denies any past medical history currently takes no medications on a daily basis and has no known drug allergies. Sadaf with patient that most likely her exacerbation of her acute back pain is due to a deep tissue massage and has probably produced some more lactic acid from the muscle. I encourage patient to increase her water intake. I also encourage patient to take ibuprofen or Tylenol for pain management. Discharging her with Robaxin and ibuprofen. Critical care attestation.: If time is entered above; I have spent that time in minutes in the direct care of this critically ill patient, excluding procedure time. ED Disposition Clinical Impression: Back pain, Right knee pain Disposition: TO HOME OR SELFCARE Is pt being admited?: No Does the pt Need Aspirin: No Condition: Stable Instructions: Acute Back Pain, Adult, Acute Knee Pain, Adult, [id number] Additional Instructions: Please take ibuprofen for pain management Robaxin for muscle relaxant. Increase your water intake. Follow-up with the primary care provider I have referred you to 1 below. Prescriptions: Ibuprofen [Motrin 800 MG tab] 800 mg PO Q8HR PRN #30 tablet PRN Reason: Pain , Severe (7-10) methOCARBAMOL [Robaxin TAB] 500 mg PO Q6H PRN #20 tablet PRN Reason: Muscle Spasm Referrals: [facility] [Provider Group] - 3-5 Days Forms: Work/School Release Form(ED) Time of Disposition: 18:20
== END 2021-02-19 18:46 | disposition home or self-care (01) ==
LOC: ED 16:10
DX: M25.561 Pain in right knee (principal); M54.9 Dorsalgia, unspecified; Z79.899 Other long term (current) drug therapy; Z98.51 Tubal ligation status
CPT/HCPCS: 99282